=== PATIENT | male | born 1960 | race Caucasian/White ===

== ENCOUNTER 2024-09-09 21:56 | Emergency (ER) | payer BC, MEDICARE ==
[~2024-09-09] VITALS: Ht 180.3 cm; Wt 120.2 kg
[~2024-09-09 21:56] MED LIST: ALPHAGAN P5 ML OU; ASPIRIN EC81 MG PO; ATROVENT HFA12.9 GM; GABAPENTIN100 MG PO; LASIX40 MG PO; LASIX80 MG; LISINOPRIL20 MG PO; LOPRESSOR50 MG PO; METOPROLOL TAR100 MG PO; POTASSIUM CHLO10 ME1; PRED FORTE1 ML; ZESTRIL40 MG PO
[2024-09-09 22:03] VITALS: TEMP 98.5
[2024-09-09 23:40] VITALS: PULSE 69; RESP 16; O2SAT 97
[2024-09-09] MEDS ORDERED: COLACE100 M1 PO (23:54)
[2024-09-09] MEDS ORDERED: ACETAMINOPHEN-1 EAC4 PO (23:54)
== END 2024-09-10 | disposition home or self-care (01) ==
LOC: ER 22:04
DX: K42.9 Umbilical hernia without obstruction or gangrene (principal); K57.90 Diverticulosis of intestine, part unspecified, without perforation or abscess without bleeding; I10 Essential (primary) hypertension; H40.9 Unspecified glaucoma; Z95.810 Presence of automatic (implantable) cardiac defibrillator
CPT/HCPCS: 74176; 99283